=== PATIENT | male | born 1980 | race American Indian/Alaskan Native ===

== ENCOUNTER 2022-03-06 18:39 | Emergency (ER) | payer SELFPAY ==
--- NOTE | 2022-03-06 19:23 | XRay Report ---
Left hand, 3 views HISTORY: Hand injury COMPARISON: None FINDINGS: There is dislocation of the left small finger at the PIP joint. The middle phalanx is dislo cated dorsally and ulnarly with respect to the proximal phalanx. No discrete fracture. Signer Name: Vito Mancia MD Signed: 03/06/2022 7:19 PM Workstation Name: [id number]
--- NOTE | 2022-03-06 20:59 | XRay Report ---
XR finger(s) 2+V LT INDICATION / CLINICAL INFORMATION: post reduction COMPARISON: Same-day radiograph FINDINGS/IMPRESSION: Successful reduction of left small finger PIP joint dislocation. No acute fracture. Signer Name: Vito Mancia MD Signed: 03/06/2022 8:55 PM Workstation Name: [id number]
--- NOTE | 2022-03-06 21:08 | Emergency Department Report ---
ED Upper Extremity Inj HPI - General Chief Complaint: Extremity Injury, Upper Stated Complaint: DISLOCATED PINKY Time Seen by Provider: 03/06/22 19:40 Source: patient Mode of arrival: Ambulatory Limitations: No Limitations - History of Present Illness Initial Comments: 41-year-old black male with no past medical history presents to the emergency department for evaluation of left fifth finger pain and injury. He states that he was playing basketball and got hit in the finger with the ball and has been unable to move finger since then. Complaint: Injury to:: left, finger -: Sudden Other Extremity Injury: Fingers: Left Other Injuries: none Place: other Severity scale (0 -10): 6 (On basketball court) Context: sports-related injury Associated Symptoms: denies other symptoms - Related Data Previous Rx's Medication Instructions Recorded Last Taken Type Prednisone 20 mg PO QDAY #5 tablet 09/21/13 Unknown Rx Promethazine /Codeine 5 ml PO Q6H PRN #80 ml 09/21/13 Unknown Rx [Phenergan/Codeine 6.25-10 mg/5 ml] Allergies Allergy/AdvReac Type Severity Reaction Status Date / Time No Known Allergies Allergy Verified 03/06/22 19:49 ED Review of Systems ROS: Stated complaint: DISLOCATED PINKY Other details as noted in HPI Comment: All other systems reviewed and negative Constitutional: denies: chills, fever Respiratory: denies: cough, shortness of breath Gastrointestinal: denies: abdominal pain, nausea, vomiting Genitourinary: denies: urgency, dysuria Musculoskeletal: denies: back pain Neurological: denies: headache, weakness ED Past Medical Hx - Social History Smoking Status: Never Smoker Substance Use Type: None - Medications Home Medications: Home Medications Medication Instructions Recorded Confirmed Last Taken Type Prednisone 20 mg PO QDAY #5 tablet 09/21/13 03/06/22 Unknown Rx Promethazine /Codeine 5 ml PO Q6H PRN #80 ml 09/21/13 03/06/22 Unknown Rx [Phenergan/Codeine 6.25-10 mg/5 ml] ED Physical Exam - General Limitations: No Limitations General appearance: alert, in no apparent distress - Head Head exam: Present: atraumatic, normocephalic - Eye Eye exam: Present: normal appearance. Absent: conjunctival injection - Neck Neck exam: Present: normal inspection, full ROM - Respiratory Respiratory exam: Absent: respiratory distress - Cardiovascular Cardiovascular Exam: Present: regular rate - GI/Abdominal GI/Abdominal exam: Absent: distended - Expanded Upper Extremity Exam Left Hand Wrist exam: Present: tenderness, dislocation (Left fifth finger). Absent: full ROM, swelling Vascular: Present: normal capillary refill, radial pulse. Absent: vascular compromise, Pallo, pulse deficit radial art - Back Exam Back exam: Present: normal inspection. Absent: tenderness - Neurological Exam Neurological exam: Present: alert, oriented X3 - Psychiatric Psychiatric exam: Present: normal affect, normal mood - Skin Skin exam: Present: warm, dry, intact, normal color ED Course Vital Signs 03/06/22 03/06/22 03/06/22 18:52 19:46 21:14 Temperature 98.3 F 98.8 F 98.6 F Pulse Rate 85 87 78 Respiratory 16 20 20 Rate Blood Pressure 127/73 135/98 113/68 [Left] O2 Sat by Pulse 99 100 100 Oximetry - Nerve Block Time Out Performed: Yes Local Anesthetic Used: Lidocaine 1% Amount of anesthesia used: 3 Side: left Nerve Blocks: digital Procedure Successful: Yes Complications: none Patient Tolerated Procedure: well - Orthopedic Joint Reduction Joint #1 Consent Obtained: verbal consent Time Out Performed: Yes Side: left Joint Reduction Location: finger Analgesia: digital block Local Anesthetic Used: Lidocaine 1% Amount of Anesthetic Used (mls): 3 Technique Used: direct manipulation Post-Reduction Neuro Exam: intact Post-Reduction Vascular Exam: intact Post Reduction X-Ray Obtained: Yes Post Reduction X-Ray Results: reduced Splint Applied: Yes Patient Tolerated Procedure: well ED Medical Decision Making - Radiology Data Radiology results: report reviewed, image reviewed Left hand x-ray: FINDINGS: There is dislocation of the left small finger at the PIP joint. The middle phalanx is dislocated dorsally and ulnarly with respect to the proximal phalanx. No discrete fracture. Postreduction left hand x-ray: FINDINGS/IMPRESSION: Successful reduction of left small finger PIP joint dislocation. No acute fracture. - Medical Decision Making 41-year-old black male with no past medical history presents to the emergency department for evaluation of left fifth finger pain and injury. He states that he was playing basketball and got hit in the finger with the ball and has been unable to move finger since then. Exam and x-ray consistent with left fifth digit dislocation. Dislocation reduce after digital block. Patient tolerated well. Postreduction x-ray within normal limits. Aluminum finger splint placed to area patient advised to follow- up with primary care provider or orthopedics if worsening symptoms. He is advised to return to the emergency department as needed. Plan of care reviewed with patient he verbalized understanding of and agreement with. Critical care attestation.: If time is entered above; I have spent that time in minutes in the direct care of this critically ill patient, excluding procedure time. ED Disposition Clinical Impression: Finger dislocation Qualifiers: Encounter type: initial encounter Qualified Code(s): S63.259A - Unspecified dislocation of unspecified finger, initial encounter Disposition: HOME / SELF CARE / HOMELESS Is pt being admited?: No Does the pt Need Aspirin: No Condition: Stable Instructions: Finger or Thumb Dislocation Additional Instructions: Follow-up with primary care provider for further evaluation. Return to the emergency department as needed. Referrals: TAMI LA MD [Staff Physician] - 3-5 Days Time of Disposition: 21:07
[2022-03-06 21:27] VITALS: BP 113/68
== END 2022-03-06 21:14 | disposition home or self-care (01) ==
LOC: ED 18:39
DX: S63.277A Dislocation of unspecified interphalangeal joint of left little finger, initial encounter (principal); Z79.899 Other long term (current) drug therapy; W21.05XA Struck by basketball, initial encounter; Y93.67 Activity, basketball; Y92.89 Other specified places as the place of occurrence of the external cause; Y99.8 Other external cause status
CPT/HCPCS: 99283